=== PATIENT | female | born 1960 | race Caucasian/White ===

== ENCOUNTER → 2020-09-22 | Outpatient (CLI) | payer SELFPAY ==
--- NOTE | 2020-09-22 16:59 | RAD ---
EXAM: AP and lateral views of the lumbar spine DATE: 09/22/2020 10:03 AM INDICATION: Reason: LOW BACK PAIN / Spl. Instructions: / History: COMPARISON: No Prior FINDINGS: 5 nonrib-bearing lumbar-type vertebral bodies. Vertebral body heights are preserved. Facet degenerati ve changes L4-5 and L5-S1. Vascular calcifications are seen. No spinal listhesis. Leftward curvature of the lumbar spine apex L3. IMPRESSION: 1. Negative acute fracture or subluxation. 2. Mild degenerative changes particularly facet joints. Electronically signed by: Jared Sauceda MD (09/22/2020 4:57 PM) [id number]
== END ==
LOC: RAD 09:46
PROVIDERS: ATTEND Family Medicine
DX: M47.816 Spondylosis without myelopathy or radiculopathy, lumbar region (principal)
CPT/HCPCS: 72100